=== PATIENT | male | born 2005 | race Two or more races ===

== ENCOUNTER 2025-03-28 00:15 | Emergency (ER) | payer SELFPAY ==
[2025-03-28 00:18] VITALS: BP 130/80; PULSE 126; RESP 20; TEMP 36.8; O2SAT 96; BMI 30.5
[2025-03-28 00:23] VITALS: BMI 30.2
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
== END 2025-03-28 01:09 ==
LOC: SERX 01:30
PROVIDERS: Emergency Provider Emergency Medicine
DX: Z02.89 Encounter for other administrative examinations (principal); S50.311A Abrasion of right elbow, initial encounter; S80.211A Abrasion, right knee, initial encounter; V89.2XXA Person injured in unspecified motor-vehicle accident, traffic, initial encounter
CPT/HCPCS: 99281